=== PATIENT | female | born 1995 | race Caucasian/White ===

== ENCOUNTER 2018-04-30 21:20 | Emergency (ER) | payer BC ==
[~2018-04-30] VITALS: Ht 165.1 cm; Wt 93.2 kg
[2018-04-30 21:27] VITALS: BP 146/97; TEMP 97.5
[2018-04-30] MEDS ORDERED: DIFLUCAN150 MG PO (21:48)
[2018-04-30] MEDS ORDERED: VALTREX1 GM PO (21:50)
[2018-04-30] MEDS ORDERED: JUNEL FE 1/20 21 TAB PO (21:50)
[2018-04-30] MEDS ORDERED: [UNRECOGNIZED DRUG - OTHER] (21:51)
[2018-04-30 22:26] LABS: COLLECTION METHOD CLEAN CATCH
[2018-04-30 22:37] LABS: MUCOUS Present /lpf; PH 5 (5-8); URINE APPEARANCE Cloudy; URINE BACTERIA Rare /hpf; URINE BILIRUBIN Negative (NEGATIVE); URINE BLOOD Negative (NEGATIVE); URINE CALCIUM OXALATE CRYSTAL Present /hpf; URINE COLOR Yellow; URINE GLUCOSE Negative (NEGATIVE); URINE KETONE Trace (NEGATIVE); URINE LEUKOCYTE ESTERASE 3+ (NEGATIVE); URINE NITRATE Negative (NEGATIVE); URINE PROTEIN(semi-quant) 1+ (NEGATIVE); URINE RBC 20-50 /hpf; URINE UROBILINOGEN >=4.0 mg/dL (NEGATIVE)
[2018-04-30] MEDS ORDERED: RECTICARE5% TP (22:59)
[2018-04-30] MEDS ORDERED: BACTRIM DS 8001 TAB PO (22:59)
[2018-04-30 23:15] VITALS: PULSE 82
== END 2018-04-30 23:15 | disposition home or self-care (01) ==
LOC: COL.ER 21:20
PROVIDERS: Emergency Medicine
DX: N39.0 Urinary tract infection, site not specified (principal); A60.00 Herpesviral infection of urogenital system, unspecified

== ENCOUNTER 2022-05-15 05:08 | Inpatient (IN) | payer BC ==
[~2022-05-15] VITALS: Ht 165.1 cm; Wt 109.1 kg
[~2022-05-15 05:08] MED LIST: BACTRIM DS 8001 TAB PO; CIPRO 500MG TA500 MG PO; DIFLUCAN150 MG PO; JUNEL FE 1/20 21 TAB PO; NORCO 325 MG-51 TAB PO; RECTICARE5% TP; REGLAN 10MG10 MG/TAB PO; VALTREX1 GM PO; [UNRECOGNIZED DRUG - OTHER]
[2022-05-15] MEDS ORDERED: ADDERALL XR20 MG PO (07:18)
[2022-05-15] MEDS ORDERED: TOPAMAX50 MG PO (07:19)
[2022-05-15 07:30] LABS: BASO % 0.2 % (0.0-2.0); EOS % 0.3 % (0.0-4.0); GRAN # 9.1 K/mm3 (1.4-6.5); GRAN % 79.8 % (42.2-75.2); HEMATOCRIT 41.3 % (37.0-47.0); HEMOGLOBIN 15.2 g/dl (12.5-16.0); LYMPH # 1.1 K/mm3 (1.2-3.4); LYMPH % 9.5 % (20.0-51.0); MEAN CELL VOLUME 85 fl (80.0-100.0); MEAN CORPUSCULAR HEMOGLOBIN 31 pg (27-31); MEAN CORPUSCULAR HGB CONC 37 g/dl (33.0-37.0); MEAN PLATELET VOLUME 9.6 fl (7.4-10.4); MONO # 1.1 K/mm3 (0.1-0.6); MONO % 9.5 % (1.7-9.3); PLATELET COUNT 350 K/mm3 (130-400); RED BLOOD COUNT 4.86 M/mm3 (4.10-5.30); REDCELL DISTRIBUTION WIDTH-CV 12.1 % (11.5-14.5)
[2022-05-15 07:45] LABS: ALBUMIN 3.5 gm/dL (3.5-5.0); BILIRUBIN,TOTAL 0.6 mg/dL (0.2-1.2); CALCIUM 9.3 mg/dL (8.4-10.2); POTASSIUM 3.5 mmol/L (3.5-4.5); TOTAL PROTEIN 6.3 gm/dL (6.2-8.1)
[2022-05-15 09:30] VITALS: BP 135/84; PULSE 64; TEMP 98
--- NOTE | 2022-05-15 09:49 | NUR ---
PATIENT BROUGHT TO FLOOR FROM ED. PATIENT REPORTS PAIN 7/10, REQUESTS PAIN MEDICATION. PATIENT REPORTS PAIN IN RLQ, NAUSEA. PATIENT ON RA. IV TO LEFT HAND INT. PATIENT RESTING IN BED. MEAL ORDERED. CALL LIGHT IN REACH.
[2022-05-15 12:23] VITALS: BP 130/78; PULSE 49; TEMP 98.2
[2022-05-15 16:09] VITALS: BP 149/91; PULSE 49; TEMP 98.2
[2022-05-15 19:28] VITALS: BP 125/74; PULSE 57; TEMP 98.4
[2022-05-15 23:44] VITALS: BP 127/77; PULSE 67; TEMP 98.1
[2022-05-16 03:57] VITALS: BP 124/68; PULSE 69; TEMP 97.5
[2022-05-16 07:15] LABS: HEMOGLOBIN 13.3 g/dl (12.5-16.0); MEAN CELL VOLUME 85 fl (80.0-100.0); MEAN CORPUSCULAR HEMOGLOBIN 31 pg (27-31); MEAN CORPUSCULAR HGB CONC 37 g/dl (33.0-37.0); MEAN PLATELET VOLUME 9.7 fl (7.4-10.4); PLATELET COUNT 263 K/mm3 (130-400); RED BLOOD COUNT 4.27 M/mm3 (4.10-5.30); REDCELL DISTRIBUTION WIDTH-CV 12.1 % (11.5-14.5)
[2022-05-16 07:31] LABS: CALCIUM 8.5 mg/dL (8.4-10.2); CREATININE, serum 0.98 mg/dL (0.57-1.11); HEMATOCRIT 36.4 % (37.0-47.0); POTASSIUM 3.2 mmol/L (3.5-4.5)
[2022-05-16 07:33] VITALS: BP 114/74; PULSE 77; TEMP 98.2
[2022-05-16 08:05] LABS: BAND 5 % (0-10); LYMPHOCYTE 19 % (20.0-51.0); NEUTROPHILS 68 % (42.0-75.2); PLATELET ESTIMATE NORMAL (NORMAL)
--- NOTE | 2022-05-16 09:14 | NUR ---
PATIENT ALERT AND ORIENTED X4. VSS. PATIENT HERE FOR PYELONEPHRITIS. PATIENT REPORTS PAIN 4/10, REPORTS PAIN IS INCREASING AND REQUESTS PAIN MEDICATION. CIPRO AND NS RUNNING IN LEFT HAND. PATIENT DENIES ANY FURTHER NEEDS. PATIENT RESTING IN BED, TOLERATED SOME BREAKFAST THIS AM. CALL LIGHT IN REACH.
[2022-05-16 12:52] VITALS: BP 154/90; PULSE 85; TEMP 97.9
--- NOTE | 2022-05-16 13:34 | NUR ---
Initial visit: Repairer Veneer Sheet stopped by room on rounds. Pt was resting and content. Pt has no needs right now. Repairer Veneer Sheet will follow up as needed.
--- NOTE | 2022-05-16 15:14 | NUR ---
SW met with patient at bedside to complete intake. Patient reports that she lives at home with her [place] in [place]. Patient is fully independent with her ADL's and IADL's. She does not utilizes any home DME to assist with mobility and has no home oxygen needs. PCP is and she utilizes [email or web address] for prescriptions. Patient verbalizes that Zoe is not a good emergency contact anymore. Chart updated. Patient is planning on returning home once medically ready. Discharge plan: Home
[2022-05-16 16:02] VITALS: BP 160/78; PULSE 79; TEMP 98.2
[2022-05-16 19:05] VITALS: BP 143/80; PULSE 96; TEMP 99.2
[2022-05-17] VITALS (7 sets, daily range): BP systolic 127–149; BP diastolic 65–78; PULSE 67–92; TEMP 98.3–99.6
[2022-05-17 06:37] LABS: HEMATOCRIT 38.5 % (37.0-47.0); HEMOGLOBIN 13.5 g/dl (12.5-16.0); MEAN CELL VOLUME 88 fl (80.0-100.0); MEAN CORPUSCULAR HEMOGLOBIN 31 pg (27-31); MEAN CORPUSCULAR HGB CONC 35 g/dl (33.0-37.0); MEAN PLATELET VOLUME 10.5 fl (7.4-10.4); PLATELET COUNT 273 K/mm3 (130-400); RED BLOOD COUNT 4.39 M/mm3 (4.10-5.30); REDCELL DISTRIBUTION WIDTH-CV 11.9 % (11.5-14.5)
[2022-05-17 06:48] LABS: CALCIUM 8.8 mg/dL (8.4-10.2); CREATININE, serum 0.95 mg/dL (0.57-1.11); POTASSIUM 3.1 mmol/L (3.5-4.5)
[2022-05-17 07:50] LABS: BAND 8 % (0-10); LYMPHOCYTE 16 % (20.0-51.0); NEUTROPHILS 67 % (42.0-75.2); PLATELET ESTIMATE NORMAL (NORMAL)
--- NOTE | 2022-05-17 08:00 | NUR ---
PATIENT IS A&O. VSS. PATIENT C/O INCREASED RIGHT POSTERIOR FLANK PAIN THAT RADIATES TO GROIN. PATIENT REQUESTING PAIN MEDS. GAVE PRN NORCO & IBUPROFEN. PATIENT ALSO USING K-PAD FOR COMFORT. NOTED ELEVATED WBC OF 21.8, CALLED CRITICAL TO HOSPITALIST. SEE NEW CONSULTS. PATIENT ALSO C/O BURNING WITH IV CIPRO. STUDENT NURSE TO RE-START NEW IV. NO C/O N/V. AM K+ WAS 3.1, SEE PROTOCOL. HEAD TO TOE ASSESSMENT COMPLETE. AM MEDS GIVEN GIVEN BY STUDENT, SEE CHARTING. NO OTHER NEEDS AT THIS TIME. CALL LIGHT IN REACH.
--- NOTE | 2022-05-17 08:45 | NUR ---
UROLOGY CONSULT COMPLETED AND AWARE OF CONSULT.
--- NOTE | 2022-05-17 10:00 | NUR ---
ATTEMPTED TO CALL TELEHEALTH ID CONSULT, NO ANSWER AND NO OPTION TO LEAVE MESSAGE.
--- NOTE | 2022-05-17 10:14 | NUR ---
Patient reported pain on right lower back and right flank at 0730. Nurse was notified and gave medication. Patient pain is manageable at 0925am. IV in left hand was red and swollen. IV site changed to left forearm. IV in left hand was removed and catheter was intact.
--- NOTE | 2022-05-17 14:01 | NUR ---
PATIENT AWAKE AND ALERT, RESTING IN BED. PATIENT COMPLAINING OF PAIN TO R LOWER BACK. MEDICAITON GIVEN. PATIENT CHANGED INTO GOWN BY PCT. ECHO AT BEDSIDE.
[2022-05-17 14:53] LABS: COLLECTION METHOD CLEAN CATCH
[2022-05-17 15:01] LABS: URINE APPEARANCE Clear (CLEAR/HAZY); URINE BACTERIA None Seen /hpf (NONE SEEN); URINE BLOOD 2+ (NEGATIVE); URINE COLOR Yellow (YELLOW); URINE GLUCOSE Negative (NEGATIVE); URINE KETONE Negative (NEGATIVE); URINE NITRATE Negative (NEGATIVE); URINE PROTEIN(semi-quant) Negative (NEGATIVE); URINE RBC 0-2 /hpf (0-2); URINE UROBILINOGEN 0.2 E.U/dL (0.2-1.0)
--- NOTE | 2022-05-17 15:35 | NUR ---
Telehealth visit conducted with Dr. Imtiaz Hicks, Infectious Disease. Patient consented to visit. Telecommunication initiated without any difficulties during exam. All questions were answered by Dr. Hicks
--- NOTE | 2022-05-17 20:00 | NUR ---
PATIENT IS ORIENTED BUT DROWSY. VSS. C/O INCREASING PAIN AFTER GETTING UP TO BATHROOM. PATIENT REQUESTING SOMETHING FOR PAIN, GIVEN WITH HS MEDS. NO C/O N/V. IV ABX INFUSING VIA PUMP INTO LEFT AC IV. HEAD TO TOE ASSESSMENT COMPLETE. NO OTHER NEEDS AT THIS TIME. CALL LIGHT IN REACH.
[2022-05-18 03:56] VITALS: BP 131/68; PULSE 105; TEMP 98.9
[2022-05-18 06:47] LABS: POTASSIUM 3.5 mmol/L (3.5-4.5)
[2022-05-18 06:47] LABS: BASO # 0.1 K/mm3 (0.0-0.2); BASO % 0.4 % (0.0-2.0); EOS # 0.1 K/mm3 (0.0-0.7); EOS % 0.4 % (0.0-4.0); GRAN # 11.4 K/mm3 (1.4-6.5); GRAN % 68.9 % (42.2-75.2); HEMATOCRIT 37.2 % (37.0-47.0); HEMOGLOBIN 13.6 g/dl (12.5-16.0); LYMPH # 3.5 K/mm3 (1.2-3.4); LYMPH % 20.9 % (20.0-51.0); MEAN CELL VOLUME 86 fl (80.0-100.0); MEAN CORPUSCULAR HEMOGLOBIN 31 pg (27-31); MEAN CORPUSCULAR HGB CONC 37 g/dl (33.0-37.0); MEAN PLATELET VOLUME 10.5 fl (7.4-10.4); MONO # 1.3 K/mm3 (0.1-0.6); MONO % 8.1 % (1.7-9.3); PLATELET COUNT 265 K/mm3 (130-400); RED BLOOD COUNT 4.35 M/mm3 (4.10-5.30); REDCELL DISTRIBUTION WIDTH-CV 11.9 % (11.5-14.5)
[2022-05-18 07:09] LABS: CALCIUM 8.9 mg/dL (8.4-10.2); CREATININE, serum 0.88 mg/dL (0.57-1.11)
[2022-05-18 07:43] VITALS: BP 133/72; PULSE 78; TEMP 98
--- NOTE | 2022-05-18 10:17 | NUR ---
PATIENT ALERT AND ORIENTED X4. VSS. PATIENT HERE FOR PYELONEPHRITIS. PATIENT REPORTS PAIN /10. IV TO LEFT HAND INT. PATIENT ON RA. BC PENDING. PATIENT DENIES ANY FURTHER NEEDS. CALL LIGHT IN REACH.
[2022-05-18 12:47] VITALS: BP 136/79; PULSE 86; TEMP 98.1
[2022-05-18 15:55] VITALS: BP 125/71; PULSE 74; TEMP 98
--- NOTE | 2022-05-18 16:38 | NUR ---
Patient scheduled telehealth visit with Dr. Hicks, Infectious Disease. Pt consents to visit. Equipment set up, audio and video connections established. Visit conducted by . No technical concerns or issues.
--- NOTE | 2022-05-18 19:19 | NUR ---
pt resting in bed. reports pain "tolerable" at a 3\\10. tolerated dinner well. IV to left forearm with cipro infusing. pt denies needs at this time. call light in reach.
[2022-05-18 19:21] VITALS: BP 126/71; PULSE 96; TEMP 98.1
[2022-05-18 23:18] VITALS: BP 119/60; PULSE 82; TEMP 98.7
[2022-05-19 03:58] VITALS: BP 136/75; PULSE 79; TEMP 98.8
[2022-05-19 07:20] VITALS: BP 106/80; PULSE 80; TEMP 98.9
[2022-05-19 07:24] LABS: BASO # 0.1 K/mm3 (0.0-0.2); BASO % 0.5 % (0.0-2.0); EOS # 0.1 K/mm3 (0.0-0.7); EOS % 0.8 % (0.0-4.0); GRAN # 8.8 K/mm3 (1.4-6.5); GRAN % 66.2 % (42.2-75.2); HEMATOCRIT 38.4 % (37.0-47.0); HEMOGLOBIN 13.9 g/dl (12.5-16.0); LYMPH # 3.1 K/mm3 (1.2-3.4); LYMPH % 23.2 % (20.0-51.0); MEAN CELL VOLUME 86 fl (80.0-100.0); MEAN CORPUSCULAR HEMOGLOBIN 31 pg (27-31); MEAN CORPUSCULAR HGB CONC 36 g/dl (33.0-37.0); MEAN PLATELET VOLUME 9.9 fl (7.4-10.4); MONO # 1.1 K/mm3 (0.1-0.6); PLATELET COUNT 295 K/mm3 (130-400); RED BLOOD COUNT 4.48 M/mm3 (4.10-5.30); REDCELL DISTRIBUTION WIDTH-CV 11.9 % (11.5-14.5)
[2022-05-19] MEDS ORDERED: CIPRO 500MG TA500 MG PO (08:25)
--- NOTE | 2022-05-19 09:51 | NUR ---
0645 recieved report Kaycee, material handler 1st shift RN. Discussed plan of care with dayshift RNElda. Went over plan of care with patient and answered any questions presented. Patient voiced understanding and was ok with plan of care.
--- NOTE | 2022-05-19 09:53 | NUR ---
0945 Left forearm IV was d/c. Patient was covered with gauze and coban. No bleeding or irritation noted. Elda, nancy RN, updated.
--- NOTE | 2022-05-19 10:06 | NUR ---
IV REMOVED BY RN STUDENT. PATIENT TOELERATED WELL WITH NO ISSUES. PATIENT GIVEN DISCHARGE INSTRUCTIONS AND EDUCAITON BY THIS RN AND VERBALIZED UNDERSTANDING. CASSANDRA TO CALL BOTH DR OFFICE FOR APT TOMORROW IF SHE DOES NOT HEAR FROM THEM AND UNDERSTANDS SHE IS TO REMIND HER PCP SHE NEEDS A REFFERAL FOR A HEALTH INFORMATION TECHNICIAN.
--- NOTE | 2022-05-19 10:45 | NUR ---
PATIENT TAKEN TO ER ENTRANCE WITH PROTOTYPE ENGINEER MANAGER AND HER WHERE SHE LEFT IN STABLE CONDITION WITH HER .
== END 2022-05-19 10:30 | disposition home or self-care (01) | DRG 690 ==
LOC: COL.ER 05:08 → SURG 07:08 → COL.ER 07:08 → SURG 05-17 08:45
PROVIDERS: Emergency Medicine; Physician Assistant; ADMIT Student in an Organized Health Care Education/Training Program
DX: N12 Tubulo-interstitial nephritis, not specified as acute or chronic (principal); E87.1 Hypo-osmolality and hyponatremia; E87.6 Hypokalemia; Z86.718 Personal history of other venous thrombosis and embolism; Z88.1 Allergy status to other antibiotic agents; Z87.440 Personal history of urinary (tract) infections; Z23 Encounter for immunization
CPT/HCPCS: OP; G0378; J0744; J1170; J1650; J1885; J2270; J2405; J7030

== ENCOUNTER → 2023-02-16 | Outpatient (CLI) | payer OTHER, BC ==
[~2023-02-16] MED LIST changes: +ADDERALL XR20 MG PO; +FLEXERIL 1010 MG/TAB PO; +TOPAMAX50 MG PO
== END ==
LOC: COL.RAD 10:14
DX: M47.816 Spondylosis without myelopathy or radiculopathy, lumbar region (principal)

== ENCOUNTER 2023-03-19 21:01 | Emergency (ER) | payer BC ==
[~2023-03-19] VITALS: Ht 165.1 cm; Wt 106.8 kg
[2023-03-19 21:08] VITALS: TEMP 98.1
[2023-03-19] MEDS ORDERED: LR 1,000 ML IV ONE (21:15)
[2023-03-19] MEDS ORDERED: Ondansetron 4 MG/2 ML VIAL IV ONE (21:15)
[2023-03-19 22:23] LABS: ALBUMIN 3.7 gm/dL (3.5-5.0); BILIRUBIN,TOTAL 0.4 mg/dL (0.2-1.2); CALCIUM 9.4 mg/dL (8.4-10.2); CREATININE, serum 0.98 mg/dL (0.57-1.11); POTASSIUM 3.5 mmol/L (3.5-4.5); TOTAL PROTEIN 7.3 gm/dL (6.2-8.1)
[2023-03-19 22:41] LABS: BASO # 0.1 K/mm3 (0.0-0.2); BASO % 0.5 % (0.0-2.0); EOS # 0.2 K/mm3 (0.0-0.7); EOS % 1.4 % (0.0-4.0); GRAN % 70.6 % (42.2-75.2); HEMATOCRIT 40.7 % (37.0-47.0); HEMOGLOBIN 14.5 g/dl (12.5-16.0); LYMPH # 3.6 K/mm3 (1.2-3.4); LYMPH % 21.2 % (20.0-51.0); MEAN CELL VOLUME 89 fl (80.0-100.0); MEAN CORPUSCULAR HEMOGLOBIN 32 pg (27-31); MEAN CORPUSCULAR HGB CONC 36 g/dl (33.0-37.0); MEAN PLATELET VOLUME 9.8 fl (7.4-10.4); MONO % 5.9 % (1.7-9.3); PLATELET COUNT 281 K/mm3 (130-400); RED BLOOD COUNT 4.56 M/mm3 (4.10-5.30); REDCELL DISTRIBUTION WIDTH-CV 11.9 % (11.5-14.5)
[2023-03-19] MEDS ORDERED: Iohexol 350 - 100 ML VIAL IV ONE (23:27)
[2023-03-19] MEDS ORDERED: NS 60 ML IV ONE (23:28)
[2023-03-19] MEDS ORDERED: PEPCID 20MG TAB20 MG PO (23:43)
[2023-03-19] MEDS ORDERED: ZOFRAN ODT4 MG PO (23:43)
[2023-03-19] MEDS ORDERED: Home Ondansetron ODT 4 MG #2 ODT/PACK PO ONE (23:45)
[2023-03-20 00:02] VITALS: BP 127/82; PULSE 92
[2023-03-20 00:15] LABS: COLLECTION METHOD CLEAN CATCH
[2023-03-20 00:20] LABS: URINE APPEARANCE Clear (CLEAR/HAZY); URINE BLOOD Negative (NEGATIVE); URINE COLOR Yellow (YELLOW); URINE GLUCOSE Negative (NEGATIVE); URINE KETONE Negative (NEGATIVE); URINE NITRATE Negative (NEGATIVE); URINE PROTEIN(semi-quant) Negative (NEGATIVE); URINE UROBILINOGEN 0.2 E.U/dL (0.2-1.0)
[2023-03-20 00:26] LABS: URINE BACTERIA Rare /hpf (NONE SEEN); URINE RBC None Seen /hpf (0-2)
== END 2023-03-20 00:02 | disposition home or self-care (01) ==
LOC: COL.ER 21:01
PROVIDERS: Emergency Medicine
DX: K52.9 Noninfective gastroenteritis and colitis, unspecified (principal)
CPT/HCPCS: J2405; J7120; Q9967